=== PATIENT | male | born 1955 | race Caucasian/White ===

== ENCOUNTER 2020-09-16 12:35 | Emergency (ER) | payer MEDICARE, OTHER ==
[~2020-09-16 12:35] MED LIST: LASIX20 MG PO; LEVAQUIN500 MG PO; LEVAQUIN750 MG PO; PROVENTIL HFA 61 INH PO; TAMIFLU75 MG PO; TYLENOL 8 HOUR650 MG PO
== END 2020-09-16 14:52 | disposition home or self-care (01) ==
LOC: ER1 12:35
DX: S63.501A Unspecified sprain of right wrist, initial encounter (principal); S43.401A Unspecified sprain of right shoulder joint, initial encounter; S46.911A Strain of unspecified muscle, fascia and tendon at shoulder and upper arm level, right arm, initial encounter; S29.012A Strain of muscle and tendon of back wall of thorax, initial encounter; I10 Essential (primary) hypertension; W01.0XXA Fall on same level from slipping, tripping and stumbling without subsequent striking against object, initial encounter; Y92.009 Unspecified place in unspecified non-institutional (private) residence as the place of occurrence of the external cause
CPT/HCPCS: 72072; 73030; 73110; 99283

== ENCOUNTER → 2021-10-01 | Outpatient (CLI) | payer OTHER ==
[~2021-10-01] VITALS: Ht 185.4 cm; Wt 117.9 kg
== END ==
LOC: EROP 11:27
DX: U07.1 COVID-19 (principal); Z23 Encounter for immunization; Z94.9 Transplanted organ and tissue status, unspecified; I10 Essential (primary) hypertension
CPT/HCPCS: M0247; Q0247

== ENCOUNTER → 2021-12-25 | Outpatient (CLI) | payer OTHER | LOC: KOH-I 13:25 | DX: D38.1 Neoplasm of uncertain behavior of trachea, bronchus and lung (principal); R91.8 Other nonspecific abnormal finding of lung field | CPT/HCPCS: 71250 ==

== ENCOUNTER → 2022-01-28 | Outpatient (CLI) | payer OTHER | LOC: HEART 5 16:11 | DX: R06.02 Shortness of breath (principal) | CPT/HCPCS: 94010; 94729 ==